=== PATIENT | female | born 1955 | race Caucasian/White ===

== ENCOUNTER 2021-01-09 15:29 | Emergency (ER) | payer OTHER ==
[~2021-01-09 15:29] MED LIST: CYCLOBENZAPRINE10 MG PO; DICLOFENAC SODI75 MG PO; KEFLEX250 MG PO; NORCO 5-325 TA1 EACH PO; ONDANSETRON ODT4 MG PO
[2021-01-09 18:39] LABS: BASOPHIL 0.7 % (0-2); EOSINOPHIL 0.9 % (0-7); HCT 41.2 % (37.0-47.0); HGB 13.4 g/dl (12.5-16.0); LYMPHOCYTE 34.2 % (15-48); MCH 30.2 pg (25.0-31.0); MCHC 32.5 g/dL (32.0-36.0); MCV 92.8 fL (78.0-100.0); MONOCYTE 8.4 % (0-12); MPV 9.6 fL (6.0-9.5); NRBC 0; PLT 156 K/uL (150-400); RBC 4.44 M/uL (4.20-5.40); RDW 13.8 % (11.5-14.0); WBC 4.3 K/uL (4.0-10.5)
[2021-01-09 18:40] LABS: NEUTROPHIL 55.3 % (41-80)
[2021-01-09 19:05] LABS: ALBUMIN 3.7 g/dL (3.4-5.0); BILIRUBIN - TOTAL 0.3 mg/dL (0.2-1.0); BUN/CREAT RATIO (CALC) 19.2 RATIO; CREATININE 0.78 mg/dL (0.51-0.95); GLOBULIN (CALCULATION) 4.3 g/dL; POTASSIUM 4.2 mmol/L (3.5-5.1)
[2021-01-09 19:41] LABS: BILIRUBIN 1+ mg/dL (NEGATIVE); BLOOD NEGATIVE Ery/uL (NEGATIVE); CLARITY CLEAR (CLEAR); COLOR YELLOW (YELLOW); GLUCOSE (U) NORMAL (NORMAL); LEUKOCYTES NEGATIVE Leu/uL (NEGATIVE); NITRITE NEGATIVE (NEGATIVE); PROTEIN 2+ mg/dL (NEGATIVE); SPECIFIC GRAVITY >=1.030 (1.001-1.030); pH 5.5 (5.0-9.0)
[2021-01-09 19:42] LABS: BACTERIA 1+
[2021-01-09 19:43] LABS: CALCIUM OXALATE CRYSTALS MODERATE; MUCOUS LARGE
[2021-01-10] MEDS ORDERED: PHENERGAN25 M1 PO (00:22)
[2021-01-10] MEDS ORDERED: MEDROL 4MG DOSEP4 MG PO (00:22)
== END 2021-01-10 01:50 | disposition home or self-care (01) ==
LOC: FER 15:29
PROVIDERS: Physician Assistant
DX: U07.1 COVID-19 (principal); Z88.5 Allergy status to narcotic agent; Z87.891 Personal history of nicotine dependence; Z90.49 Acquired absence of other specified parts of digestive tract
CPT/HCPCS: 36415; 71045; 80053; 81001; 83690; 84484; 85025; 93005; J1885; J2405; J2550; J7030; U0002

== ENCOUNTER 2021-08-23 22:59 | Emergency (ER) | payer OTHER ==
[~2021-08-23 22:59] MED LIST changes: +MEDROL 4MG DOSEP4 MG PO; +PHENERGAN25 M1 PO
[2021-08-23 23:33] LABS: HCT 41.3 % (37.0-47.0); HGB 13.8 g/dl (12.5-16.0); MCH 31.4 pg (25.0-31.0); MCHC 33.4 g/dL (32.0-36.0); MCV 93.9 fL (78.0-100.0); RBC 4.4 M/uL (4.20-5.40); WBC 8.8 K/uL (4.0-10.5)
[2021-08-23 23:49] LABS: BUN/CREAT RATIO (CALC) 16.2 RATIO; CREATININE 0.68 mg/dL (0.51-0.95); POTASSIUM 3.5 mmol/L (3.5-5.1)
[2021-08-24] MEDS ORDERED: AMOX TR-K CLV1 EAC4 PO (00:45)
== END 2021-08-24 01:37 | disposition home or self-care (01) ==
LOC: FER 22:59
PROVIDERS: Emergency Medicine
DX: K04.7 Periapical abscess without sinus (principal); F17.210 Nicotine dependence, cigarettes, uncomplicated; Z88.5 Allergy status to narcotic agent
CPT/HCPCS: 36415; 70491; 80048; 84484; 93005; 96374; J1885; J7030; Q0163; Q9967

== ENCOUNTER 2022-02-28 09:55 | Emergency (ER) | payer OTHER ==
[~2022-02-28 09:55] MED LIST changes: +AMOX TR-K CLV1 EAC4 PO
[2022-02-28 12:37] LABS: BASOPHIL 0.7 % (0-2); EOSINOPHIL 2.3 % (0-7); HCT 37.3 % (37.0-47.0); HGB 12.3 g/dl (12.5-16.0); LYMPHOCYTE 23.5 % (15-48); MCH 31.2 pg (25.0-31.0); MCV 94.7 fL (78.0-100.0); MONOCYTE 7.4 % (0-12); MPV 9.3 fL (6.0-9.5); NEUTROPHIL 65.8 % (41-80); NRBC 0; PLT 268 K/uL (150-400); RBC 3.94 M/uL (4.20-5.40); RDW 13.7 % (11.5-14.0); WBC 7.7 K/uL (4.0-10.5)
[2022-02-28 13:19] LABS: ALBUMIN 3.8 g/dL (3.4-5.0); BILIRUBIN - TOTAL 0.6 mg/dL (0.2-1.0); BUN/CREAT RATIO (CALC) 16.7 RATIO; CREATININE 0.66 mg/dL (0.51-0.95); GLOBULIN (CALCULATION) 3.8 g/dL; POTASSIUM 4.5 mmol/L (3.5-5.1); TOTAL PROTEIN 7.6 g/dL (6.4-8.2)
[2022-02-28] MEDS ORDERED: AMOX TR-K CLV1 EAC4 PO (13:33)
[2022-02-28] MEDS ORDERED: VIBRAMYCIN100 MG PO (13:33)
== END 2022-02-28 13:49 | disposition home or self-care (01) ==
LOC: FER 09:55
PROVIDERS: Internal Medicine
DX: L02.212 Cutaneous abscess of back [any part, except buttock and flank] (principal); L03.211 Cellulitis of face; F17.210 Nicotine dependence, cigarettes, uncomplicated; Z90.49 Acquired absence of other specified parts of digestive tract; Z90.09 Acquired absence of other part of head and neck
CPT/HCPCS: 36415; 70490; 71250; 80053; 84145; 85025